=== PATIENT | male | born 1935 | race Caucasian/White ===

== ENCOUNTER 2023-01-22 13:48 | Emergency (ER) | payer MEDICARE, BC ==
[~2023-01-22] VITALS: Ht 175.3 cm; Wt 79.4 kg
[2023-01-22] MEDS ORDERED: IBUP-1953 PO (15:15)
[2023-01-22 15:30] VITALS: BP 136/76; O2SAT 98
== END 2023-01-22 15:34 | disposition home or self-care (01) ==
LOC: ER 13:48
DX: S63.613A Unspecified sprain of left middle finger, initial encounter (principal); Z79.1 Long term (current) use of non-steroidal anti-inflammatories (NSAID); W01.0XXA Fall on same level from slipping, tripping and stumbling without subsequent striking against object, initial encounter; Y93.89 Activity, other specified; Y92.89 Other specified places as the place of occurrence of the external cause; Y99.8 Other external cause status
CPT/HCPCS: 73110; 73130; A4663